=== PATIENT | female | born 1965 | race Caucasian/White ===

== ENCOUNTER 2019-02-23 17:52 | Emergency (ER) | payer MEDICAID, OTHER ==
[~2019-02-23] VITALS: Ht 139.7 cm; Wt 80.0 kg
[2019-02-23] MEDS ORDERED: NORCO, ANEXSIA 5/325MG TABLET (HYDROcodone/ACETAMINOPHEN) PO ONE (19:30)
--- NOTE | 2019-02-23 20:54 | REPVR ---
PROCEDURE INFORMATION: Exam: CT Lumbar Spine Without Contrast Exam date and time: 02/23/2019 7:43 PM Age: 53 years old Clinical indication: Injury or trauma; Fall; Initial encounter; Blunt trauma (contusions or hematomas); Additional info: Fell on right hip TECHNIQUE: Imaging protocol: Computed tomography images of the lumbar spine without contrast. Radiation optimization: All CT scans at this facility use at least one of these dose optimization techniques: automated exposure control; mA and/or kV adjustment per patient size (includes targeted exams where dose is matched to clinical indication); or iterative reconstruction. COMPARISON: No relevant prior studies available. FINDINGS: Vertebrae: Mild levoconvex curvature. Vertebral body height and AP alignment is preserved. Mild to moderate prevertebral osteophytosis. No acute lumbar spine fracture. Discs/Spinal canal/Neural foramina: No definite significant central canal stenosis. Soft tissues: See Vertebrae Finding. IMPRESSION: No acute lumbar spine fracture. Electronically signed by: Austyn Skinner On 02/23/2019 20:54:17 PM
[2019-02-23] MEDS ORDERED: ROBA750T4 PO (21:19)
[2019-02-23] MEDS ORDERED: LIDO5DIS41 TD (21:19)
[2019-02-23] MEDS ORDERED: LIDOCAINE 5% (LIDODERM) PATCH TD ONE (21:30)
[2019-02-23] MEDS ORDERED: methocarbamoL 750 MG TAB PO ONE (21:30)
[2019-02-23 21:31] VITALS: BP 114/71
--- NOTE | 2019-02-24 01:29 | REP ---
Clinical: Trauma. Technique: Neutral and frog lateral views of the right hip. Findings: Examination is limited by body habitus and underpenetration. Age-related changes are suggested without obvious acute fracture or dislocation. Impression: No obvious acute fracture or dislocation. Electronically Signed by Jun Coffey MD 02/24/2019 01:21 A
[2019-02-24] MEDS ORDERED: **NOTE PATIENT COMMENT** MISC XX SCH (21:00)
== END 2019-02-23 21:33 | disposition home or self-care (01) ==
LOC: M ED 17:52 → EDBD 17:52 → M ED 21:33
DX: S70.01XA Contusion of right hip, initial encounter (principal); M54.5 Low back pain; F17.200 Nicotine dependence, unspecified, uncomplicated; Z88.0 Allergy status to penicillin; Z88.8 Allergy status to other drugs, medicaments and biological substances; W18.30XA Fall on same level, unspecified, initial encounter; Y92.9 Unspecified place or not applicable